=== PATIENT | female | born 1995 | race African-American/Black ===

== ENCOUNTER 2024-09-25 14:09 | Emergency (ER) | payer OTHER ==
[~2024-09-25] VITALS: Ht 175.3 cm; Wt 127.2 kg
[2024-09-25] MEDS ORDERED: KETOROLAC 30 MG/ML 1ML VIAL IV ONE (17:00)
[2024-09-25] MEDS: KETOROLAC 30 MG/ML 1ML VIAL IM ONE (17:20)
[2024-09-25 17:32] VITALS: BP 117/73; TEMP 97.6; O2SAT 97
[2024-09-25 18:07] LABS: BLOOD UREA NITROGEN 15 MG/DL (9-23); CARBON DIOXIDE LEVEL 29 MMOL/L (20-31); CHLORIDE LEVEL 107 MMOL/L (98-107); CREATININE FOR GFR 0.58 MG/DL (0.55-1.30); GLOMERULAR FILTRATION RATE > 60.0 (>60); GLUCOSE, FASTING 94 MG/DL (60-100); POTASSIUM SERUM 4.2 MMOL/L (3.5-5.1); SODIUM LEVEL 143 MMOL/L (136-145)
[2024-09-25 18:09] LABS: BASO % 0.4 % (0.0-1.0); EOS # 0.1 10^3/uL (0.0-0.5); EOS % 1.3 % (0.0-3.0); HEMOGLOBIN 11.6 g/dl (12.0-15.5); LYMPH # 2.2 10^3/uL (1.5-5.0); LYMPH % 42.2 % (24.0-44.0); MEAN CORPUSCULAR HEMOGLOBIN 24.2 pg (27.0-33.0); MEAN CORPUSCULAR HGB CONC 29.7 g/dl (32.0-36.5); MEAN CORPUSCULAR VOLUME 81.4 fl (80.0-96.0); MONO # 0.6 10^3/uL (0.0-0.8); MONO % 11.2 % (2.0-8.0); NEUTROPHILS # 2.3 10^3/uL (1.5-8.5); NEUTROPHILS % 44.7 % (36.0-66.0); PLATELET COUNT, AUTOMATED 316 10^3/uL (150-450); RED BLOOD COUNT 4.79 10^6/uL (4.00-5.40); WHITE BLOOD COUNT 5.2 10^3/uL (4.0-10.0)
[2024-09-25 18:17] LABS: OVALOCYTES 1+
[2024-09-25 18:18] LABS: ANISOCYTOSIS 2+
[2024-09-25 18:19] LABS: PLATELET ESTIMATE NORMAL (NORMAL)
[2024-09-25] MEDS ORDERED: LIDVISCBTL TOP (18:19)
[2024-09-25] MEDS ORDERED: AMOX875T2 PO (18:19)
== END 2024-09-25 18:37 | disposition home or self-care (01) ==
LOC: M ED 14:09
DX: K08.89 Other specified disorders of teeth and supporting structures (principal); H66.91 Otitis media, unspecified, right ear; D64.9 Anemia, unspecified; E28.2 Polycystic ovarian syndrome; Z79.2 Long term (current) use of antibiotics; Z79.899 Other long term (current) drug therapy
CPT/HCPCS: 80048; 85025; 96372; 99283; J1885

== ENCOUNTER 2024-10-22 00:31 | Emergency (ER) | payer OTHER ==
[~2024-10-22] VITALS: Ht 177.8 cm; Wt 120.5 kg
[~2024-10-22 00:31] MED LIST: AMOX875T2 PO; LIDVISCBTL TOP
[2024-10-22 00:38] VITALS: TEMP 97.5
[2024-10-22 01:51] LABS: LIPASE 35 U/L (12-53)
[2024-10-22 01:54] LABS: ALBUMIN 3.5 G/DL (3.2-5.2); ALKALINE PHOSPHATASE 81 U/L (35-104); ALT/SGPT 21 U/L (7.0-40); AST/SGOT 19 U/L (<34); BILIRUBIN,DIRECT < 0.1 MG/DL (<0.4); BILIRUBIN,TOTAL 0.2 MG/DL (0.3-1.2); BLOOD UREA NITROGEN 15 MG/DL (9-23); CALCIUM LEVEL 9.1 MG/DL (8.5-10.1); CARBON DIOXIDE LEVEL 29 MMOL/L (20-31); CHLORIDE LEVEL 102 MMOL/L (98-107); CREATININE FOR GFR 0.67 MG/DL (0.55-1.30); GLOMERULAR FILTRATION RATE > 60.0 (>60); GLUCOSE, FASTING 97 MG/DL (60-100); POTASSIUM SERUM 4.1 MMOL/L (3.5-5.1); SODIUM LEVEL 142 MMOL/L (136-145); TOTAL PROTEIN 7.5 G/DL (5.7-8.2)
[2024-10-22 02:14] LABS: BASO % 0.5 % (0.0-1.0); EOS # 0.1 10^3/uL (0.0-0.5); EOS % 0.8 % (0.0-3.0); HEMATOCRIT 40.4 % (36.0-47.0); HEMOGLOBIN 12.4 g/dl (12.0-15.5); LYMPH # 2.8 10^3/uL (1.5-5.0); LYMPH % 32.7 % (24.0-44.0); MEAN CORPUSCULAR HEMOGLOBIN 25.6 pg (27.0-33.0); MEAN CORPUSCULAR HGB CONC 30.7 g/dl (32.0-36.5); MEAN CORPUSCULAR VOLUME 83.3 fl (80.0-96.0); MONO # 0.7 10^3/uL (0.0-0.8); MONO % 8.6 % (2.0-8.0); NEUTROPHILS # 4.9 10^3/uL (1.5-8.5); NEUTROPHILS % 57.2 % (36.0-66.0); PLATELET COUNT, AUTOMATED 383 10^3/uL (150-450); RED BLOOD COUNT 4.85 10^6/uL (4.00-5.40); WHITE BLOOD COUNT 8.5 10^3/uL (4.0-10.0)
[2024-10-22 02:21] LABS: HCG, SERUM QUALITATIVE NEGATIVE (NEGATIVE)
[2024-10-22 03:33] LABS: KETONE, URINE AUTO RFX NEGATIVE (NEGATIVE); MUCUS, URINE RFX SMALL (NEGATIVE); NITRITE, URINE AUTO RFX NEGATIVE (NEGATIVE); RBC, URINE AUTO RFX 3 /HPF (0-3); SQUAM EPITHELIAL CELL UR AURFX 25 /HPF (0-6)
[2024-10-22 03:34] LABS: LEUKOCYTE ESTERASE UR AUTO RFX 3+ (NEGATIVE); WBC, URINE AUTO RFX 18 /HPF (0-3)
[2024-10-22] MEDS: KETOROLAC 30 MG/ML 1ML VIAL IV ONE (03:48)
[2024-10-22] MEDS ORDERED: ISOVUE-370 76% 100ML VIAL As Ordered ONE (03:49)
[2024-10-22] MEDS: ONDANSETRON 4MG 2ML VIAL IV ONE (03:49)
[2024-10-22] MEDS ORDERED: HYDROMORPHONE HCL 0.5 MG/ 0.5 ML SYRINGE IV PRN (04:35)
[2024-10-22 05:05] LABS: Trichomonas vaginalis (AMP) NOT DETECTED (NEGATIVE)
[2024-10-22 05:30] LABS: GC DNA AMPLIFICATION NEGATIVE (NEGATIVE)
[2024-10-22 06:07] VITALS: BP 118/68; O2SAT 99
[2024-10-22] MEDS ORDERED: KETO10TAB PO (06:15)
[2024-10-22] MEDS ORDERED: ONDA-282 PO (06:15)
== END 2024-10-22 06:34 | disposition home or self-care (01) ==
LOC: M ED 00:31
DX: R10.9 Unspecified abdominal pain (principal); E28.2 Polycystic ovarian syndrome; E66.9 Obesity, unspecified; F12.10 Cannabis abuse, uncomplicated; F10.10 Alcohol abuse, uncomplicated; Z79.2 Long term (current) use of antibiotics; Z79.83 Long term (current) use of bisphosphonates; Z79.899 Other long term (current) drug therapy
CPT/HCPCS: 74177; 80048; 80076; 81001; 83690; 84703; 85025; 87086; 87661; 87810; 87850; 96374; 96375; 99284; J1885; J2405; Q9967

== ENCOUNTER → 2024-12-17 | Outpatient (REF) | payer OTHER ==
[~2024-12-17] MED LIST changes: +KETO10TAB PO; +ONDA-282 PO
[2024-12-17 15:25] LABS: BASO % 0.5 % (0.0-1.0); EOS # 0.1 10^3/uL (0.0-0.5); EOS % 1.7 % (0.0-3.0); HEMOGLOBIN 13.2 g/dl (12.0-15.5); LYMPH # 3.1 10^3/uL (1.5-5.0); LYMPH % 37.7 % (24.0-44.0); MEAN CORPUSCULAR HEMOGLOBIN 26.8 pg (27.0-33.0); MEAN CORPUSCULAR HGB CONC 30.7 g/dl (32.0-36.5); MEAN CORPUSCULAR VOLUME 87.4 fl (80.0-96.0); MONO # 0.7 10^3/uL (0.0-0.8); MONO % 8.7 % (2.0-8.0); NEUTROPHILS # 4.2 10^3/uL (1.5-8.5); NEUTROPHILS % 51.3 % (36.0-66.0); PLATELET COUNT, AUTOMATED 404 10^3/uL (150-450); RED BLOOD COUNT 4.92 10^6/uL (4.00-5.40); WHITE BLOOD COUNT 8.1 10^3/uL (4.0-10.0)
[2024-12-17 15:30] LABS: IRON (FE) 52 UG/DL (50-170); PERCENT SATURATION 12.4 % (13.2-45.0); TOTAL IRON BINDING CAPACITY 418 UG/DL (250-425)
[2024-12-17 15:31] LABS: ALBUMIN 3.7 G/DL (3.2-5.2); ALKALINE PHOSPHATASE 73 U/L (35-104); ALT/SGPT 22 U/L (7.0-40); AST/SGOT 20 U/L (<34); BILIRUBIN,TOTAL 0.4 MG/DL (0.3-1.2); BLOOD UREA NITROGEN 13 MG/DL (9-23); CALCIUM LEVEL 9.4 MG/DL (8.5-10.1); CARBON DIOXIDE LEVEL 28 MMOL/L (20-31); CHLORIDE LEVEL 103 MMOL/L (98-107); CHOLESTEROL LEVEL 189 MG/DL (<200); CHOLESTEROL RISK RATIO 4.96 (<5); CREATININE FOR GFR 0.74 MG/DL (0.55-1.30); GLOMERULAR FILTRATION RATE > 60.0 (>60); GLUCOSE, FASTING 92 MG/DL (60-100); HDL CHOLESTEROL 38.1 MG/DL (>40); LDL CHOLESTEROL 131.3 MG/DL (<100); NON-HDL-C 150.9 MG/DL; POTASSIUM SERUM 4.2 MMOL/L (3.5-5.1); SODIUM LEVEL 137 MMOL/L (136-145); THYROID STIMULATING HORMONE 3.911 uIU/ML (0.55-4.78); TOTAL 25(OH) VITAMIN D 17.4 NG/ML (20.0-100.0); TOTAL PROTEIN 7.6 G/DL (5.7-8.2); TRIGLYCERIDES LEVEL 98 MG/DL (<150)
[2024-12-17 15:32] LABS: FERRITIN 21.2 NG/ML (7.3-270.7)
[2024-12-17 15:34] LABS: HEMOGLOBIN A1c 5.4 % (4.0-6.0)
== END ==
LOC: M LAB REF 13:19
PROVIDERS: ATTEND Student in an Organized Health Care Education/Training Program
DX: E55.9 Vitamin D deficiency, unspecified (principal); Z68.41 Body mass index [BMI] 40.0-44.9, adult; D64.9 Anemia, unspecified; E66.01 Morbid (severe) obesity due to excess calories

== ENCOUNTER → 2024-12-17 | Outpatient (CLI) | payer OTHER | LOC: M EKG 15:47 | PROVIDERS: ATTEND Student in an Organized Health Care Education/Training Program | DX: R00.2 Palpitations (principal) ==

== ENCOUNTER → 2025-01-01 | Outpatient (CLI) | payer OTHER | LOC: M SLEEP HO 11:06 | PROVIDERS: ATTEND Student in an Organized Health Care Education/Training Program | DX: R06.83 Snoring (principal) ==

== ENCOUNTER → 2025-02-15 | Outpatient (REF) | payer MEDICAID ==
[2025-02-15 18:12] LABS: BASO % 0.4 % (0.0-1.0); EOS # 0.1 10^3/uL (0.0-0.5); EOS % 1.3 % (0.0-3.0); HEMOGLOBIN 11.9 g/dl (12.0-15.5); LYMPH % 27.8 % (24.0-44.0); MEAN CORPUSCULAR HEMOGLOBIN 26.6 pg (27.0-33.0); MEAN CORPUSCULAR HGB CONC 30.5 g/dl (32.0-36.5); MEAN CORPUSCULAR VOLUME 87.2 fl (80.0-96.0); MONO # 0.8 10^3/uL (0.0-0.8); MONO % 10.6 % (2.0-8.0); NEUTROPHILS # 4.3 10^3/uL (1.5-8.5); NEUTROPHILS % 59.6 % (36.0-66.0); PLATELET COUNT, AUTOMATED 439 10^3/uL (150-450); RED BLOOD COUNT 4.47 10^6/uL (4.00-5.40); WHITE BLOOD COUNT 7.2 10^3/uL (4.0-10.0)
[2025-02-15 18:23] LABS: FERRITIN 8.3 NG/ML (7.3-270.7)
== END ==
LOC: M LAB REF 17:25
PROVIDERS: ATTEND Student in an Organized Health Care Education/Training Program
DX: D64.9 Anemia, unspecified (principal)

== ENCOUNTER → 2025-05-18 | Outpatient (REF) | payer OTHER ==
[~2025-05-18] MED LIST changes: +ACET-683; +CLON-412; +HYDR50CA2; +LEXA1TAB; +MELO15TA28
[2025-05-18 18:46] LABS: CALCIUM LEVEL 9.2 MG/DL (8.5-10.1); CARBON DIOXIDE LEVEL 24 MMOL/L (20-31); CHLORIDE LEVEL 100 MMOL/L (98-107); CREATININE FOR GFR 0.70 MG/DL (0.55-1.30); GLOMERULAR FILTRATION RATE > 90.0 (>60); POTASSIUM SERUM 4.5 MMOL/L (3.5-5.1); SODIUM LEVEL 137 MMOL/L (136-145)
[2025-05-18 18:47] LABS: BASO # 0.0 10^3/uL (0.0-0.2); BASO % 0.5 % (0.0-1.0); EOS # 0.1 10^3/uL (0.0-0.5); EOS % 0.7 % (0.0-3.0); LYMPH # 1.7 10^3/uL (1.5-5.0); LYMPH % 20.1 % (24.0-44.0); MONO # 0.9 10^3/uL (0.0-0.8); MONO % 10.7 % (2.0-8.0); NEUTROPHILS # 5.8 10^3/uL (1.5-8.5); NEUTROPHILS % 67.8 % (36.0-66.0); PLATELET COUNT, AUTOMATED 381 10^3/uL (150-450)
== END ==
LOC: M LAB REF 18:07
PROVIDERS: ATTEND Student in an Organized Health Care Education/Training Program
DX: R34 Anuria and oliguria (principal)

== ENCOUNTER 2025-06-12 18:30 | Inpatient (IN) | payer OTHER ==
[~2025-06-12] VITALS: Ht 175.3 cm; Wt 120.0 kg
[~2025-06-12 18:30] MED LIST changes: -LEXA1TAB; +LEXA1TAB PO; +SENN-186 PO
[2025-06-12 18:55] LABS: PLATELET COUNT, AUTOMATED 312 10^3/uL (150-450)
[2025-06-12 19:29] LABS: ALT/SGPT 25 U/L (7.0-40); AST/SGOT 22 U/L (<34); CALCIUM LEVEL 9.7 MG/DL (8.5-10.1); CARBON DIOXIDE LEVEL 28 MMOL/L (20-31); CHLORIDE LEVEL 104 MMOL/L (98-107); CREATININE FOR GFR 0.66 MG/DL (0.55-1.30); GLOMERULAR FILTRATION RATE > 90.0 (>60); POTASSIUM SERUM 4.4 MMOL/L (3.5-5.1); SALICYLATE LEVEL < 3.0 MG/DL (<30); SODIUM LEVEL 142 MMOL/L (136-145)
[2025-06-12 19:31] LABS: ETHYL ALCOHOL (ETHANOL) < 0.003 % (0.000-0.010); HCG, SERUM QUALITATIVE NEGATIVE (NEGATIVE)
[2025-06-12 19:53] LABS: AMPHETAMINES LEVEL URINE NEGATIVE (NEGATIVE); BARBITURATES URINE NEGATIVE (NEGATIVE); COCAINE METABOLITE URINE NEGATIVE (NEGATIVE); METHADONE URINE NEGATIVE (NEGATIVE); OPIATES URINE NEGATIVE (NEGATIVE); PHENCYCLIDINE URINE NEGATIVE (NEGATIVE)
[2025-06-12 19:54] LABS: BENZODIAZEPINES URINE NEGATIVE (NEGATIVE)
[2025-06-12 19:55] LABS: CANNABINOIDS URINE POSITIVE (NEGATIVE)
[2025-06-12] MEDS ORDERED: SENN-186 PO (21:30)
[2025-06-12] MEDS ORDERED: HOME MED LIST COMPLETE! XX SCH (21:35)
[2025-06-12] MEDS ORDERED: IBUPROFEN 400 MG TAB PO PRN (23:15)
[2025-06-12] MEDS ORDERED: MAALOX 30 ML SUSP *UDC PO PRN (23:15)
[2025-06-12] MEDS ORDERED: MOM 30 ML SUSPENSION UDC PO PRN (23:15)
[2025-06-12] MEDS ORDERED: traZODone 50 MG TAB PO PRN (23:15)
[2025-06-12] MEDS ORDERED: ACETAMINOPHEN 325 MG TAB PO PRN (23:15)
[2025-06-13 00:05] VITALS: BP 136/79; TEMP 97.6; O2SAT 99
[2025-06-13 06:36] VITALS: BP 158/82; TEMP 97.6; O2SAT 99
[2025-06-13] MEDS: ESCITALOPRAM OXALATE 5 MG TABLET PO SCH (08:32)
[2025-06-13 11:29] LABS: IRON (FE) 74.0 UG/DL (50-170); PERCENT SATURATION 21.0 % (13.2-45.0)
[2025-06-13 15:15] VITALS: BP 129/66; TEMP 97.7; O2SAT 99
[2025-06-13] MEDS: QUEtiapine FUMARATE 50MG TAB PO SCH (21:14)
[2025-06-14 06:42] VITALS: BP 113/58; TEMP 97.1; O2SAT 95
[2025-06-14] MEDS: ESCITALOPRAM OXALATE 10 MG TABLET PO SCH (08:56)
[2025-06-14 15:19] VITALS: BP 129/75; TEMP 97.5; O2SAT 97
[2025-06-15 06:22] VITALS: BP 139/80; TEMP 97; O2SAT 98
[2025-06-15 17:37] VITALS: BP 145/81; TEMP 97.9
[2025-06-15] MEDS: SENNOSIDES/DOCUSATE SODIUM 8.6 MG/50MG TAB PO PRN (20:35)
[2025-06-16 06:24] VITALS: BP 137/75; TEMP 97.3; O2SAT 100
[2025-06-16] MEDS ORDERED: LEXA1TAB PO (06:48)
[2025-06-16] MEDS ORDERED: QUET100T2 PO (06:48)
[2025-06-16] MEDS ORDERED: SENN-186 PO (06:48)
== END 2025-06-16 11:08 | disposition home or self-care (01) | DRG 751 ==
LOC: M ED 18:30 → M ED INP 23:11 → M PSY 06-13 00:38
PROVIDERS: ADMIT General Practice; ATTEND General Practice
DX: F33.1 Major depressive disorder, recurrent, moderate (principal); F41.0 Panic disorder [episodic paroxysmal anxiety]; F12.20 Cannabis dependence, uncomplicated; Z59.89 Other problems related to housing and economic circumstances; R45.851 Suicidal ideations; E53.8 Deficiency of other specified B group vitamins

== ENCOUNTER → 2025-07-14 | Outpatient (CLI) | payer OTHER ==
[~2025-07-14] MED LIST changes: +QUET100T2 PO
== END ==
LOC: M SLEEP 20:00
PROVIDERS: ATTEND Physician Assistant
DX: R06.83 Snoring (principal); R40.0 Somnolence